=== PATIENT | female | born 1955 | race African-American/Black ===

== ENCOUNTER 2020-06-28 20:23 | Emergency (ER) | payer MEDICARE ==
[~2020-06-28] VITALS: Ht 162.6 cm; Wt 92.1 kg
[~2020-06-28 20:23] MED LIST: METHYLPREDNISOLONE SOD SUCC 125 MG/2ML VIAL ONE
[2020-06-28] MEDS ORDERED: KETOROLAC TROMETHAMINE 60 MG/2 ML VIAL IM ONE (21:00)
[2020-06-28] MEDS ORDERED: METHYLPREDNISOLONE SOD SUCC 125 MG/2ML VIAL IM ONE (21:00)
[2020-06-28] MEDS ORDERED: ONDANSETRON HCL 4 MG ORAL DISINTEGRATING TAB PO ONE (21:00)
[2020-06-28] MEDS ORDERED: MORPHINE SULFATE INJ 4 MG/ML INJ 1ML IM ONE (21:15)
[2020-06-28] MEDS ORDERED: ONDANSETRON HCL 4 MG ORAL DISINTEGRATING TAB ONE (21:16)
[2020-06-28] MEDS ORDERED: KETOROLAC TROMETHAMINE 60 MG/2 ML VIAL ONE (21:17)
[2020-06-28] MEDS ORDERED: MORPHINE SULFATE INJ 4 MG/ML INJ 1ML ONE (21:18)
[2020-06-28 22:28] VITALS: BP 185/89
[2020-06-28] MEDS ORDERED: PREDNISONE20 MG PO ×2 (22:30→22:33)
== END 2020-06-28 22:35 | disposition home or self-care (01) ==
LOC: FSED 21:00
DX: M10.9 Gout, unspecified (principal); M79.671 Pain in right foot; E11.65 Type 2 diabetes mellitus with hyperglycemia
CPT/HCPCS: 36415; 82948; 96372; 99283; J1885; J2270; J2930; Q0162